=== PATIENT | female | born 1970 | race Caucasian/White ===

== ENCOUNTER 2024-01-02 11:29 | Emergency (ER) | payer OTHER, SELFPAY ==
[2024-01-02 11:33] VITALS: BP 125/78
--- NOTE | 2024-01-02 11:55 | ED.GENMED ---
History of Present Illness
General
Chief Complaint: Musculo-Skeletal Complaint
Source: patient
Exam Limitations: none
Time Seen by Provider: 01/02/24 11:46
Travel History
Have you had any contact with someone who has COVID-19?: No
Do you have any symptoms of coronavirus? Fever > 100 degrees, chills, cough, shortness of breath, sore throat, loss of taste or smell, muscle aches, or headache?: No
History of Present Illness
History of Present Illness:
See MDM
Past History
Past History
ED Past Medical History: GERD and Other (Migraines, polycythemia vera, anxiety, depression)
ED Past Surgical History: Gynecological (partial hysterectomy), Orthopedic and Other (Breast augmentation, D&C)
Social History
Tobacco: Non-smoker
Personal:
Living: with family
Employment: Employed
Phy Exam
Physical Exam
Physical Exam:
See MDM
Course
Orders/Labs/Results
Orders:
Orders
01/02/24 11:55
Oxycodone/Acetaminophen [Percocet 5/325] 1 tablet PO NOW STA
Finger(s)/Thumb 2 View Lt [CR Finger(s)/thumb Min 2 Vw Lt] Urgent
Comment:
Reason For Exam: lef ring finger injury
Vital Signs
Initial and Last Documented VS:
Initial Vital Signs
Temp Pulse BP Pulse Ox
98.1 F 83 125/78 99
01/02/24 11:33 01/02/24 11:33 01/02/24 11:33 01/02/24 11:33
Last Documented Vital Signs
Temp Pulse BP Pulse Ox
98.1 F 83 125/78 99
01/02/24 11:33 01/02/24 11:33 01/02/24 11:33 01/02/24 11:33
Procedures
Joint/Fracture Reduction
left mid ring finger:
Indication for procedure:: Finger dislocation
Procedure completed by: Ricky Crocker DO
Consent form signed: No
Joint reduced: without anesthesia
Injury was: closed
Further treatement: no treatment needed
Post reduction exam: stable
Capillary Refill: normal
Normal distal neurovascular exam?: Yes
MDM/Problems Addressed
Differential Diagnosis Includes:
HPI and MDM Narrative:
53-year-old female presenting with left ring finger injury. She was walking her dog and the dog went after a lópez and it twisted her left ring finger. Patient is having trouble extending her finger.
On exam, the left ring finger is stuck in flexion. I discussed my concern that she tore the extensor tendon that attached to her finger. The finger is otherwise neurovascularly intact. Will obtain x-ray
Physical exam
General: Well appearing and non-toxic
HEENT: protecting airway
Neck: appears supple
CV: No evidence of cyanosis
Resp: No accessory muscle use
Abd: Non-distended
Extremities: Left ring finger stuck in flexion. Sensation grossly intact. Cap refill less than 2 seconds
Neuro: alert
Psych: Normal affect
Skin: Intact
Problems Addressed including Acute and Chronic Conditions affecting care:
1. Left ring finger injury
Acuity: acute
Prognosis: stable
Details: Clinical concern for extensor tendon rupture versus dislocation. Will obtain x-ray
Updates
X-ray consistent with dislocation. I easily reduced the finger. Patient now has full range of motion. Discussed return precautions. Discussed follow-up with hand if symptoms persist
Differential Diagnosis (but not limited to): Finger fracture, extension tender rupture
Testing considered: Hand x-ray
Drug therapy (if applicable): OTC meds, please see d/c instruction regarding Rx drugs
Amount and/or Complexity of Data Reviewed
Clinical info obtained from: Patient
External data reviewed: N/A
Labs I independently reviewed (but not limited to): N/A
Radiology: X-ray independently reviewed: Finger dislocation
Pulse Ox: not hypoxic
EKG independently reviewed: N/A
District Supervisor: N/A
Critical Care: N/A
Risk of Complication:
Social Determinants of health: Good social support
Discussed with other providers: N/A
Escalation of Care includes Admit/Obs: After being observed in the Emergency Department, pt stable for discharge.
Occasional wrong word or 'sound a like' substitutions may have occurred due to the inherent limitations of voice recognition software. Read the chart carefully and recognize, using context, where substitutions have occurred.
*Critical Care Note
Total Time (30-74mins, 75-104mins- exclusive of procedures): Not Applicable
ED Attending Note
-
Portions of this chart may have been created with voice recognition software.� Occasional wrong word or��sound alike� substitutions may have occurred due to the inherent limitations of voice recognition software.
Discharge Plan
Departure
Patient Disposition: Home (Routine Discharge)
Date of Disposition: 01/02/24
Time of Disposition: 12:37
Patient with high blood pressure during this ER visit?: No
Discharge Problem:
Dislocation of finger, closed
Prescriptions:
No Action
aspirin 81 MG tablet,delayed release (DR/EC)
81 mg PO DAILY
ascorbic acid (vitamin C) [Vitamin C] 500 MG tablet
500 mg PO DAILY
bupropion HCl 75 MG tablet
150 mg PO BID
docosahexaenoic acid-epa 1 CAP capsule
1 cap PO DAILY
cholecalciferol (vitamin D3) 1,000 UNITS tablet
1,000 units PO DAILY
oxycodone 5 mg tablet
5 mg PO Q8H PRN (Reason: pain) Qty: 12 0RF
ibuprofen 600 mg tablet
600 mg PO Q8H PRN (Reason: pain) Qty: 20 0RF
Referrals:
Cole Perez MD [Active] -
Activity Restrictions/Additional Instructions:
Please use the finger splint for comfort. Please call the hand surgeon if symptoms persist.
Interventions
Interventions:
*Risk Screen - Suicide Last Done: 01/02/24 11:35
*General Assessment Last Done: 01/02/24 11:35
*Neglect/Abuse Screening Last Done: 01/02/24 11:35
ED- Fall Risk Assessment Last Done: 01/02/24 11:42
ED-Musculoskeletal Assessment Last Done: 01/02/24 11:42
Discharge Date and Time
Print Language: INDONESIAN
[2024-01-02] MEDS: PERCOCET 5/325 1 TABLET PO (11:59)
== END 2024-01-02 13:02 | disposition home or self-care (01) ==
LOC: EMR 11:29
PROVIDERS: EMERGENCY PHYSICIAN Student in an Organized Health Care Education/Training Program
DX: S63.255A Unspecified dislocation of left ring finger, initial encounter (principal); X50.1XXA Overexertion from prolonged static or awkward postures, initial encounter; Y93.K1 Activity, walking an animal; K21.9 Gastro-esophageal reflux disease without esophagitis; F41.9 Anxiety disorder, unspecified; F32.A Depression, unspecified; G43.909 Migraine, unspecified, not intractable, without status migrainosus; D45 Polycythemia vera; Z88.1 Allergy status to other antibiotic agents; Z88.2 Allergy status to sulfonamides
CPT/HCPCS: 99283; 26770; 73140

== ENCOUNTER → 2024-07-13 08:34 | Outpatient (REF) | payer OTHER, SELFPAY | LOC: HWWDC 08:34 | PROVIDERS: ATTENDING PHYSICIAN Obstetrics & Gynecology; FAMILY PHYSICIAN Internal Medicine | DX: N83.201 Unspecified ovarian cyst, right side (principal); Z12.31 Encounter for screening mammogram for malignant neoplasm of breast | CPT/HCPCS: 76830; 76856; 77063; 77067 ==

== ENCOUNTER → 2024-09-21 08:51 | Outpatient (REF) | payer OTHER, SELFPAY | LOC: HWRAD 08:51 | PROVIDERS: ATTENDING PHYSICIAN Internal Medicine Hematology; FAMILY PHYSICIAN Internal Medicine | DX: Z78.0 Asymptomatic menopausal state (principal); R16.1 Splenomegaly, not elsewhere classified; M54.2 Cervicalgia | CPT/HCPCS: 72052; 76700; 77080 ==